=== PATIENT | female | born 1955 | race Caucasian/White ===

== ENCOUNTER → 2019-03-21 13:01 | Outpatient (CLI) | payer OTHER ==
--- NOTE | ~2019-03-21 | EC ---
PATIENT:EVIN EISENBERG DATE OF SERVICE: 03/21/19 SEX: F MEDICAL RECORD: [id number] DATE OF : [birth year] LOCATION:[facility] AGE OF PATIENT: 64 ADMISSION DATE: 03/21/19 REFERRING PHYSICIAN: INTERPRETING PHYSICIAN: DARION ZAPATA MD ECHOCARDIOGRAM REPORT ECHO CHARGES 4 ECHO COMPLETE Date: 03/21/19 CLINICAL DIAGNOSIS: CP/ANGINA/MURMUR ECHOCARDIOGRAPHIC MEASUREMENTS (adult normal given) AC root (d.<3.7cm) 2.9 cm LV Septum d (<1.2 cm> 1.2 cm Valve Excursion 2.0 cm LV Septum (systole) 1.8 cm Left Atria (s.<4.0cm> 3.6 cm LVPW d(<1.2cm) 1.0 cm RV (d.<2.3cm) 2.3 cm LVPW (sytole) 1.6 cm LV diastole(<5.6CM) 5.1 cm MV E-F(>70mm/sec) cm LV systole 2.6 cm LVOT Diameter 1.7 cm MV exc.(>10mm) cm Est.ejection fraction (50-75%) % DOPPLER: LVIT cm/sec A 52.0 cm/sec E 81.0 cm/sec LA cm/sec RVSP 44.0 mmHg LVOT 125 cm/sec AOP1/2T m/s Asc. Ao 138 cm/sec RVOT 57.0 cm/sec RA cm/sec PA 84.0 cm/sec AV Gradient Peak 7.6 mmHg AV Mean 3.4 mmHg AV Area 2.0 cm MV Gradient Peak 3.9 mmHg MV Mean 0.97 mmHg MV Area cm COMMENTS: OP - HC Assistant Account Executive: 1 ALVARADO ANTONIO Special Education Coordinator: 3 Dr. Barboza TAPE# PACS Pericardial Effusion N DATE OF SERVICE: Adequate 2D echo, color flow, spectral Doppler, and M-mode. No LVH. LV internal dimensions are normal. Wall motion is normal. EF is greater than or equal to 55%. Aortic valve is tricuspid. No evidence of stenosis by Doppler interrogation. Left atrium is normal. Mitral valve shows no prolapse. Trace MR. Right-sided chambers grossly normal. Trace TR. TRANSINT:[id number] Voice Confirmation ID: [id number] DOCUMENT ID: [id number] ECHOCARDIOGRAM REPORT [id number] EVIN EISENBERG GREGORY A MD CC: [id number] DICTATION DATE: 03/23/19 1328 LIABILITY ANALYST: 03/23/192030 DEP CLI 03/21/[address] [id number]
== END | disposition home or self-care (01) ==
LOC: D.HCCECHO 13:01
PROVIDERS: ATTEND Internal Medicine Interventional Cardiology
DX: I20.9 Angina pectoris, unspecified (principal); R01.1 Cardiac murmur, unspecified